=== PATIENT | female | born 1975 | race Caucasian/White ===

== ENCOUNTER 2016-11-06 16:40 | Emergency (ER) | payer MEDICAID ==
[2016-11-06] MEDS ORDERED: METHYLPREDNISOLONE SOD SUCC/PF 40 MG/ML VIAL IV ONE (17:07)
[2016-11-06] MEDS ORDERED: NORMAL SALINE 1,000 ML in NORMAL SALINE 1,000 ML IV ONE (17:07)
[2016-11-06] MEDS ORDERED: ALBUTEROL SULFATE/IPRATROPIUM 3 ML NEBU IH ONE ×2 (17:08→17:22)
[2016-11-06] MEDS ORDERED: METHYLPREDNISOLONE SOD SUCC/PF 40 MG/ML VIAL ONE (17:22)
--- OUTSIDE RECORDS SUMMARY | 2016-11-06 17:22 | XMS REPORT | Continuity of Care Document ---
:1975 Author Organization [facility] ([facility]) Address [address] [place] [address] Phone [phone] Care Team Providers Name Role Phone Unavailable Primary Care Provider Unavailable Source Comments This disclosure is being made pursuant to the Care Everywhere program, applicable federal and state laws, and may not contain all informaitonavailable regarding this patient.[facility] ([facility]) Active Allergies and Adverse Reactions Not on File Current Medications Not on file Active Problems Not on file Social History Tobacco Use Types Packs/Day Years Used Date Never Assessed Plan of Care Health Maintenance Due Date Last Done Comments Hepatitis B Vaccine (1 of 3 - Primary Series) 1975 Tdap Vaccine 01/06/1988 Lipid Disorder Screening 1995 MMR Vaccine 1995 Td Vaccine 1995 Cervical Cancer Screening 2007 Influenza Vaccine: Seasonal (#1) 04/12/2016 Results from Last 3 Months Not on file
--- NOTE | 2016-11-06 17:25 | ERNOTE ---
Medical Problem HPI - Narrative Date of Service: 11/06/16 - General Chief Complaint: General Assessment Time Seen by Provider: 11/06/16 16:55 Source: patient - Immun/Allergies/Home Medications Allergies/Adverse Reactions: Allergies cefuroxime axetil [From Ceftin] Allergy (Verified 11/06/16 16:49) Penicillins Allergy (Verified 11/06/16 16:49) Sulfa (Sulfonamide Antibiotics) [Sulfa(Sulfonamide Antibiotics)] Allergy ( Verified 11/06/16 16:49) Home Medications: HOME MEDICATIONS FLUoxetine HCL [Prozac] 60 mg PO DAILY 04/07/13 [Last Taken 05/15/14] Etonogestrel [Nexplanon] 06/03/13 [Last Taken Unknown] Clomipramine HCl [Anafranil] 50 mg PO HS 05/15/14 [Last Taken 05/15/14] LORazepam [Ativan] 0.5 mg PO HS PRN 05/15/14 [Last Taken 05/15/14] Doxycycline Monohydrate 100 mg PO BID #20 tablet 11/06/16 [Last Taken Unknown] Prednisone [Deltasone] 20 mg PO BID #10 tablet 11/06/16 [Last Taken Unknown] - History of Present History Narrative: Pt has had a cough and feels dehydrated for the past few days. Timing: constant Severity: moderate Review of Systems - Review of Systems Constitutional: Present: See HPI EYE: Present: no symptoms reported ENT: Present: no symptoms reported Respiratory: Present: cough Cardiology: Present: no symptoms reported Gastrointestinal/Abdominal: Present: no symptoms reported Genitourinary: Present: no symptoms reported Musculoskeletal: Present: no symptoms reported Skin: Present: no symptoms reported Neurological: Present: no symptoms reported Endocrine: Present: no symptoms reported Hematologic/Lymphatic: Present: no symptoms reported Psych: Present: no symptoms reported - Patient's Past Medical History Patient History - Medical: Anxiety, Depression Patient History - Cardiac/Respiratory: No pertinent hx Patient History - Cancer: No Hx of Cancer Patient History - Surgical Procedures: No surgical history - Social History Smoking Status: Current every day smoker Have you smoked in the past 12 months: Yes Physical Exam - Physical Exam General Appearance: Present: wd/wn, alert, mild distress Eye Exam: Normal inspection: bilateral, PERRL: bilateral Ears, Nose, Throat: Present: hearing grossly normal, normal pharynx, dry mucous membranes - mild Neck: Present: normal inspection, nontender Respiratory: Present: no respiratory distress, normal breath sounds, no accessory muscle use, chest nontender, lungs clear Cardiovascular/Chest: Present: no murmur, normal peripheral pulses, tachycardia - slight Gastrointestinal/Abdominal: Present: normal bowel sounds, nontender, nondistended, soft, no organomegaly Rectal Exam: Present: deferred Back Exam: Present: normal inspection, normal range of motion Extremity Exam: Present: normal inspection, non-tender, no edema, normal range of motion Neurological Exam: Present: alert, oriented, normal mood/affect Skin Exam: Present: warm/dry, other - maculo-papular rash where the pants rub against the pendulous abdomen Lymphatic Exam: Present: no adenopathy ED Progress - Results and Orders Patient's Lab Results:: I have reviewed the patient's lab results. - Vital Signs Patient's Vital Signs:: I have reviewed the patient's vital signs. Vital Signs: Vital Signs 11/06/16 16:44 Temperature 36.1 C L Pulse Rate 101 H Respiratory 14 Rate Blood Pressure 146/62 O2 Sat by Pulse 100 Oximetry - X-Ray X-Ray #1 X-Ray: chest Interpretation: Reviewed by me - Progress/Reassessment Chief Complaint: General Assessment Progress:: Improved - Transfer of Care Expected Disposition: Discharge Departure - Departure Clinical Impression: Bronchitis Contact dermatitis Qualifiers: Contact dermatitis type: irritant Contact dermatitis trigger: detergents Qualified Code(s): L24.0 - Irritant contact dermatitis due to detergents Disposition: Home self-care Condition: Good Instructions: Acute Bronchitis, [id number], Contact Dermatitis, [id number] Prescriptions: Doxycycline Monohydrate 100 mg PO BID #20 tablet Prednisone [Deltasone] 20 mg PO BID #10 tablet
[2016-11-06 17:29] LABS: Hematocrit 39.5 % (37.0-47.0); Hemoglobin 13.8 gm/dL (12.5-16.0); Mean Cell Volume 82.3 fl (78-100); Mean Corpuscular Hemoglobin 28.8 pg (27-31); Mean Corpuscular Hgb Conc 34.9 g/dl (32-36); Mean Platelet Volume 9.7 fl (6.0-9.5); Neutrophil # 10.7 K/mm3 (1.3-6.0); Neutrophil % 68.5 % (42-75.0); Platelet Count 395 K/mm3 (150-450); Red Cell Distribution Width 13.2 % (11.5-14.0); White Blood Count 15.6 K/mm3 (4.0-10.5)
[2016-11-06 17:42] LABS: BUN/Creatinine Ratio 17.1 (9.0-21.6)
[2016-11-06 17:43] LABS: Albumin * 3.9 gm/dl (3.4-5.0); Anion Gap 18.1 mmol/L (6.8-13.8); Bilirubin, Total 0.5 mg/dL (0.0-1.1); Ca. Corrected For Albumin 8.8 mg/dL (8.4-10.2); Carbon Dioxide 21.6 mmol/L (24-32.6); Magnesium 1.9 mg/dL (1.2-2.8); Potassium 4.7 mmol/L (3.4-4.6)
[2016-11-06 19:08] VITALS: BP 125/74
[2016-11-06] MEDS ORDERED: DOXYCYCLINE HYCLATE 100 MG TABLET PO ONE (19:24)
[2016-11-06] MEDS ORDERED: DOXYCYCLINE HYCLATE 100 MG TABLET ONE (19:25)
== END 2016-11-06 19:31 | disposition home or self-care (01) ==
LOC: ER 16:40
DX: J20.8 Acute bronchitis due to other specified organisms (principal); Z72.0 Tobacco use; L24.0 Irritant contact dermatitis due to detergents; F41.8 Other specified anxiety disorders

== ENCOUNTER 2016-11-07 16:10 | Emergency (ER) | payer MEDICAID ==
[2016-11-07 16:17] VITALS: BP 153/93
--- OUTSIDE RECORDS SUMMARY | 2016-11-07 16:29 | XMS REPORT | Continuity of Care Document ---
:1975 Author Organization [facility] ([facility]) Address [address] [place] [address] Phone [phone] Care Team Providers Name Role Phone Unavailable Primary Care Provider Unavailable Source Comments This disclosure is being made pursuant to the Care Everywhere program, applicable federal and state laws, and may not contain all informaitonavailable regarding this patient.[facility] ([facility]) Active Allergies and Adverse Reactions Not on [...]
[2016-11-07] MEDS ORDERED: LIDOCAINE HCL 20 ML VIAL ONE (16:37)
--- NOTE | 2016-11-07 16:53 | ERNOTE ---
Medical Problem HPI - Narrative Date of Service: 11/07/16 - General Chief Complaint: Laceration Time Seen by Provider: 11/07/16 16:19 Source: patient, RN notes reviewed Exam Limitations: no limitations - Immun/Allergies/Home Medications Allergies/Adverse Reactions: Allergies cefuroxime axetil [From Ceftin] Allergy (Verified 11/07/16 16:17) Penicillins Allergy (Verified 11/07/16 16:17) Sulfa (Sulfonamide Antibiotics) [Sulfa(Sulfonamide Antibiotics)] Allergy ( Verified 11/07/16 16:17) Home Medications: HOME MEDICATIONS FLUoxetine HCL [Prozac] 60 mg PO DAILY 04/07/13 [Last Taken 05/15/14] Etonogestrel [Nexplanon] 06/03/13 [Last Taken Unknown] Clomipramine HCl [Anafranil] 50 mg PO HS 05/15/14 [Last Taken 05/15/14] LORazepam [Ativan] 0.5 mg PO HS PRN 05/15/14 [Last Taken 05/15/14] Doxycycline Monohydrate 100 mg PO BID #20 tablet 11/06/16 [Last Taken Unknown] predniSONE [Deltasone] 20 mg PO BID #10 tablet 11/06/16 [Last Taken Unknown] - History of Present History Narrative: 41 y/o female ambulatory to the ED for a laceration to her right middle finger. She cut her self while washing dishes at home just [employer]. She reports having difficulty getting the wound to stop bleeding. Review of Systems - Review of Systems Constitutional: Present: no symptoms reported EYE: Present: no symptoms reported ENT: Present: no symptoms reported Respiratory: Present: no symptoms reported Cardiology: Present: no symptoms reported Gastrointestinal/Abdominal: Present: no symptoms reported Genitourinary: Present: no symptoms reported Musculoskeletal: Absent: joint pain, joint swelling Skin: Absent: lesions, lumps, change in color Neurological: Absent: weakness, numbness, tingling Endocrine: Present: no symptoms reported Hematologic/Lymphatic: Absent: easy bruising, easy bleeding Psych: Present: no symptoms reported - Patient's Past Medical History Patient History - Medical: Anxiety, Depression Patient History - Cardiac/Respiratory: No pertinent hx Patient History - Cancer: No Hx of Cancer Patient History - Surgical Procedures: No surgical history - Social History Living Situations: home Smoking Status: Current every day smoker - Immunizations Immunizations Up to Date: Yes Physical Exam - Physical Exam General Appearance: Present: wd/wn, alert, no apparent distress Respiratory: Present: no respiratory distress, no accessory muscle use Cardiovascular/Chest: Present: normal peripheral pulses Extremity Exam: Present: normal except - - Rt 3rd finger laceration Neurological Exam: Present: alert, oriented, normal mood/affect, no motor/ sensory deficits Skin Exam: Present: normal color, warm/dry ED Progress - Vital Signs Patient's Vital Signs:: I have reviewed the patient's vital signs. Vital Signs: Vital Signs 11/07/16 16:14 Temperature 35.8 C L Pulse Rate 117 H Respiratory 16 Rate Blood Pressure 153/93 O2 Sat by Pulse 99 Oximetry - Progress/Reassessment Chief Complaint: Laceration Progress:: Improved Procedures Right Volar Finger 3rd Digit Anesthesia: 1% Lidocaine Length of Repair/Wound (cm): 1.5 Wound's Depth/Shape: into subcutaneous Wound Explored: clean, to base, in bloodless field, no foreign body Wound Intervention: irrigated w/saline Distal NVT: neuro/vasc intact, no tendon injury Wound Repaired With: sutures Suture Size/Type: 5-0, nylon Number of Sutures: 4 Layer Closure: Simple Wound Dressing: sterile dressing applied Complications: Pt filippo procedure well Departure - Departure Clinical Impression: Finger laceration Qualifiers: Encounter type: initial encounter Qualified Code(s): S61.219A - Laceration without foreign body of unspecified finger without damage to nail, initial encounter Disposition: Home Follow Up Needed Condition: Good Instructions: Sutured Wound Care, [id number] Additional Instructions: Keep dressing dry and in place for 48 hours OK to then wash wound gently with soap and water but do not soak Apply antibiotic ointment and bandage as needed Have sutures removed in 7 days
== END 2016-11-07 16:55 | disposition home or self-care (01) ==
LOC: ER 16:10
PROC: 0JQJ0ZZ Repair Right Hand Subcutaneous Tissue and Fascia, Open Approach (ICD-10-PCS; principal; 2016-11-07)
DX: S61.212A Laceration without foreign body of right middle finger without damage to nail, initial encounter (principal); F17.210 Nicotine dependence, cigarettes, uncomplicated; Y93.G1 Activity, food preparation and clean up; Y92.009 Unspecified place in unspecified non-institutional (private) residence as the place of occurrence of the external cause

== ENCOUNTER 2017-01-01 13:06 | Emergency (ER) | payer MEDICAID ==
--- OUTSIDE RECORDS SUMMARY | 2017-01-01 13:22 | XMS REPORT | Continuity of Care Document ---
:1975 Author Organization [facility] ([facility]) Address [address] [place] [address] Phone [phone] Care Team Providers Name Role Phone Unavailable Primary Care Provider Unavailable Source Comments This disclosure is being made pursuant to the Care Everywhere program, applicable federal and state laws, and may not contain all informaitonavailable regarding this patient.[facility] ([facility]) Active Allergies and Adverse Reactions Not [...]
--- NOTE | 2017-01-01 13:53 | ERNOTE ---
Date of Service: 01/01/17 Time Seen by Provider: 01/01/17 13:15 Stated Complaint: SINUS INFECTIONS Presenting Symptoms:: other - frontal head pain, sinus congestion Exam Limitations: no limitations Immunizations: IMMUNIZATION HX Immunizations Up to Date Yes Allergies/Adverse Reactions: Allergies cefuroxime axetil [From Ceftin] Allergy (Verified 01/01/17 13:14) Penicillins Allergy (Verified 01/01/17 13:14) Sulfa (Sulfonamide Antibiotics) [Sulfa(Sulfonamide Antibiotics)] Allergy ( Verified 01/01/17 13:14) Home Medications: HOME MEDICATIONS FLUoxetine HCL [Prozac] 60 mg PO DAILY 04/07/13 [Last Taken 05/15/14] Etonogestrel [Nexplanon] 06/03/13 [Last Taken Unknown] Clomipramine HCl [Anafranil] 50 mg PO HS 05/15/14 [Last Taken 05/15/14] LORazepam [Ativan] 0.5 mg PO HS PRN 05/15/14 [Last Taken 05/15/14] Levofloxacin [Levaquin] 750 mg PO DAILY #7 tablet 01/01/17 [Last Taken Unknown] Magnesium Citrate [Citrate of Magnesia] 296 ml PO NOW #1 btl 01/01/17 [Last Taken Unknown] - Pain Score Pain Score #1 Pain Score: 4 - History of Present Ilness Narrative: Patient is a 41 year old female who presents to the ED with complaints of sinus pressure x 2 days, frontal headache, fluid in bilateral ears, sinus congestion and productive cough. Patient states she has had chronic sinus infections and "this is how they feel". Patient also states she has been feeling fatigued and tired, progressively worse x 1 week. States that she has been diagnosed in the past with anemia and had been previously taking vitamins which seemed to help. States she had felt better and stop the vitamins. Patient admits to poor diet, very little fruits and vegetables, a lot of tea and little water. Admits to smoking. 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 Denies dark tarry/black or bloody stools, chest pain or SOB. Date (Duration): 01/01/17 Timing: getting worse Severity: mild Frequency/Possible Cause: Reports: chronic episodes, smoke exposure, other - sick contacts Modifying Factors - Improves: Reports: antibiotics - has been on Zithromax before for sinus infections Modifying Factors - Worsens: Reports: coughing Associated Symptoms: Reports: cough, facial pain, nasal congestion, earache, headache. Denies: shortness of breath, wheezing, dizziness, lightheadedness, sore throat, muscle aches, fever/chills Review of Systems - Review of Systems Constitutional: Present: fatigue. Absent: recent illness, fever, chills, diaphoresis, weakness, weight loss EYE: Absent: eye pain, eye discharge, blurred vision ENT: Present: ear pain, nose congestion. Absent: ear discharge, sore throat, throat swelling Respiratory: Present: cough. Absent: shortness of breath, orthopnea, wheezing, stridor Cardiology: Absent: chest pain, palpitations, syncope, edema, claudication Gastrointestinal/Abdominal: Present: constipation - chronic. Absent: nausea, vomiting, diarrhea, abdominal pain Genitourinary: Present: no symptoms reported. Absent: frequency, pain, dysuria Musculoskeletal: Present: no symptoms reported Skin: Absent: rash, dryness Neurological: Present: no symptoms reported Endocrine: Present: no symptoms reported Hematologic/Lymphatic: Absent: no symptoms reported Psych: Absent: no symptoms reported - Patient's Past Medical History Patient History - Medical: Anxiety, Depression Patient History - Cardiac/Respiratory: No pertinent hx Patient History - Cancer: No Hx of Cancer Patient History - Surgical Procedures: No surgical history Patient History - Other: None LMP (females 10-50): last week - Social History Living Situations: home Smoking Status: Current every day smoker - Immunizations Immunizations Up to Date: Yes Physical Exam - Physical Exam General Appearance: Present: wd/wn, alert, no apparent distress Eye Exam: Normal inspection: bilateral, PERRL: bilateral Ears, Nose, Throat: Present: normal except - - effusion right ear, abnormal TM ( R), nasal congestion, sinus pain/drainage, pharyngeal erythema. Absent: hearing decreased, abnormal TM (L), cerumen impaction, pharyngeal swelling, tonsillar exudate, tonsillar swelling, dry mucous membranes Neck: Present: normal inspection, nontender, full range of motion. Absent: lymphadenopathy (R), lymphadenopathy (L) Respiratory: Present: no respiratory distress, normal breath sounds, no accessory muscle use, chest nontender, lungs clear Cardiovascular/Chest: Present: regular rate, rhythm, no murmur, normal peripheral pulses Peripheral Pulses: N=norm/S=strong/W=weak/B=bound/A=absent: Radial (R): Normal, Radial (L): Normal Gastrointestinal/Abdominal: Present: normal bowel sounds, nontender, nondistended, soft, no organomegaly Rectal Exam: Present: deferred Back Exam: Present: normal inspection, normal range of motion, no CVA tenderness , no vertebral tenderness Extremity Exam: Present: normal inspection, non-tender, normal range of motion, no edema Neurological Exam: Present: alert, oriented, normal mood/affect, no motor/ sensory deficits Skin Exam: Present: normal color, warm/dry Lymphatic Exam: Present: no adenopathy ED Progress - Vital Signs Patient's Vital Signs:: I have reviewed the patient's vital signs. Vital Signs: Vital Signs 01/01/17 01/01/17 13:10 13:38 Temperature 36.9 C Pulse Rate 96 96 Respiratory 16 Rate Blood Pressure 145/87 O2 Sat by Pulse 100 Oximetry - Progress/Reassessment Chief Complaint: Upper Respiratory Symptoms Departure - Departure Clinical Impression: Constipation, chronic Sinusitis Qualifiers: Sinusitis location: maxillary Chronicity: acute Recurrence: recurrent Qualified Code(s): J01.01 - Acute recurrent maxillary sinusitis Anemia Qualifiers: Anemia type: unspecified type Qualified Code(s): D64.9 - Anemia, unspecified Disposition: Home Follow Up Needed Condition: Good Instructions: Anemia, Nonspecific, Sinusitis, Adult, [id number] Additional Instructions: Please take antibiotics as prescribed and until completed. Over the counter [place] pot rinses to both nostrils three times a day. Take half bottle Magnesium Citrate, if no results in one hour finish bottle. Increase vegetables and fiber in diet to help with constipation. Increase water intake. Please make appointment with MOHINDER Dove to discuss previous vitamin regimen. Referrals: Petty Cisneros APN [Primary Care Provider] - Prescriptions: Levofloxacin [Levaquin] 750 mg PO DAILY #7 tablet Magnesium Citrate [Citrate of Magnesia] 296 ml PO NOW #1 btl
[2017-01-01 14:03] VITALS: BP 130/87
== END 2017-01-01 13:53 | disposition home or self-care (01) ==
LOC: ER 13:06
DX: J01.01 Acute recurrent maxillary sinusitis (principal); K59.09 Other constipation; D64.9 Anemia, unspecified; F17.210 Nicotine dependence, cigarettes, uncomplicated; F41.9 Anxiety disorder, unspecified; F32.9 Major depressive disorder, single episode, unspecified

== ENCOUNTER 2017-08-14 22:18 | Emergency (ER) | payer MEDICAID ==
[2017-08-14] MEDS ORDERED: KETOROLAC TROMETHAMINE 60 MG/2 ML VIAL IM ONE ×2 (22:35→22:36)
--- NOTE | 2017-08-14 22:35 | ERNOTE ---
ENT HPI Date of Service: 08/14/17 Time Seen by Provider: 08/14/17 22:31 Source: patient Exam Limitations: no limitations - Immun/Allergies/Home Medications Immunizations: IMMUNIZATION HX Immunizations Up to Date Yes History of Influenza Vaccine Yes Hx Pneumococcal Vaccination No Allergies/Adverse Reactions: Allergies Allergy/AdvReac Type Severity Reaction Status Date / Time cefuroxime axetil Allergy Verified 01/01/17 13:14 [From Ceftin] Penicillins Allergy Verified 01/01/17 13:14 Sulfa (Sulfonamide Allergy Verified 01/01/17 13:14 Antibiotics) [Sulfa(Sulfonamide Antibiotics)] Home Medications: HOME MEDICATIONS FLUoxetine HCL [Prozac] 60 mg PO DAILY 04/07/13 [Last Taken 05/15/14] Etonogestrel [Nexplanon] 06/03/13 [Last Taken Unknown] Clomipramine HCl [Anafranil] 50 mg PO HS 05/15/14 [Last Taken 05/15/14] LORazepam [Ativan] 0.5 mg PO HS PRN 05/15/14 [Last Taken 05/15/14] Azithromycin [Zithromax] 250 mg PO 08/14/17 [Last Taken Unknown] Doxycycline Hyclate [Morgidox] 100 mg PO BID #20 capsule 08/14/17 [Last Taken Unknown] HYDROcodone/ACETAMINOPHEN [[place] 5-325] 1 tab PO Q4H PRN #12 tab 08/14/17 [Last Taken Unknown] - History of Present Illness Narrative: c/o right ear pain , currently on zithromax for sinusits Severity: Present: moderate ENT Location: Present: ear (R) Prearrival Treatment: Present: prescription meds Modifying Factors - Improves: Reports: lying down Modifying Factors - Worsens: Reports: activity Associated Symptoms - ENT: Reports: fever, nasal congestion/drainage Prior Treament: Reports: recently seen, treated by physician, currently on antibiotics Review of Systems - Narrative Narrative: patient c/o of right ear pain started over last two days - Review of Systems Constitutional: Present: See HPI, malaise EYE: Present: no symptoms reported ENT: Present: See HPI, ear pain, nose congestion Respiratory: Present: cough Cardiology: Present: no symptoms reported Gastrointestinal/Abdominal: Present: no symptoms reported Genitourinary: Present: no symptoms reported Musculoskeletal: Present: no symptoms reported Skin: Present: no symptoms reported Neurological: Present: no symptoms reported Endocrine: Present: no symptoms reported Hematologic/Lymphatic: Present: no symptoms reported Psych: Present: no symptoms reported All Other Systems: All systems neg except as marked - Narrative Narrative: unremarkable - Patient's Past Medical History Patient History - Medical: Anxiety, Depression Patient History - Cardiac/Respiratory: No pertinent hx Patient History - Cancer: No Hx of Cancer Patient History - Surgical Procedures: Orthopedic Patient History - Other: None LMP (females 10-50): this week - Family History Family History:: no untoward family reactions to anesthesia, no familial bleeding tendencies, no family history of clotting disorders, no family history of premature - Social History Living Situations: significant other Psych History: Hx of Anxiety, Hx of Depression Smoking Status: Current every day smoker Have you smoked in the past 12 months: Yes Do you dip or chew tobacco: No Patient requests Smoking Cessation Consult: No Initiate information on Smoking Cessation: No Alcohol Use: none Drug Use: none - Immunizations Immunizations Up to Date: Yes Hx Pneumococcal Vaccination: No History of Influenza Vaccine: Yes Physical Exam - Physical Exam Narrative: patient appears in moderate distress General Appearance: Present: moderate distress Head Exam: Present: normal inspection, no evidence of injury Eye Exam: Normal inspection: bilateral, PERRL: bilateral, EOMI: bilateral Ears, Nose, Throat: Present: abnormal TM (R), normal pharynx Neck: Present: normal inspection, nontender Respiratory: Present: no respiratory distress, normal breath sounds, no accessory muscle use, chest nontender, lungs clear Cardiovascular/Chest: Present: regular rate, rhythm, no murmur, normal peripheral pulses Peripheral Pulses: N=norm/S=strong/W=weak/B=bound/A=absent: Carotid (R): Normal , Carotid (L): Normal, Radial (R): Normal, Radial (L): Normal, Femoral (R): Normal, Femoral (L): Normal, Dorsalis-pedis (R): Normal, Dorsalis-pedis (L): Normal Gastrointestinal/Abdominal: Present: normal bowel sounds, nontender, nondistended, soft, no organomegaly Back Exam: Present: normal inspection, normal range of motion, no CVA tenderness , no vertebral tenderness Extremity Exam: Present: normal inspection, non-tender, normal range of motion, no edema Neurological Exam: Present: alert, oriented, normal mood/affect, no motor/ sensory deficits DTR: N=norm/NB=norm/brisk/A=abs/DD=dull/dimin/HC=hyperactive: Bicep (R): Normal , Bicep (L): Normal, Tricep (R): Normal, Tricep (L): Normal, Knee (R): Normal, Knee (L): Normal, Ankle (R): Normal, Ankle (L): Normal Skin Exam: Present: normal color, warm/dry Lymphatic Exam: Present: no adenopathy ED Progress - Date and Time Seen: Date and Time: 08/14/17 22:40 patient condition unchanged - Vital Signs Patient's Vital Signs:: I have reviewed the patient's vital signs. Vital Signs: Vital Signs 08/14/17 22:22 Temperature 36.8 C Pulse Rate 102 H Respiratory 18 Rate Blood Pressure 157/93 O2 Sat by Pulse 98 Oximetry - Progress/Reassessment Chief Complaint: Earache Progress:: Unchanged - Transfer of Care Expected Disposition: Discharge Departure Clinical Impression: Otitis media - Departure Disposition: Home self-care Condition: Fair Instructions: Otitis Media, Adult, [id number] Referrals: Petty Cisneros APN [Primary Care Provider] - Prescriptions: Doxycycline Hyclate [Morgidox] 100 mg PO BID #20 capsule HYDROcodone/ACETAMINOPHEN [[place] 5-325] 1 tab PO Q4H PRN #12 tab PRN Reason: Pain
[2017-08-14] MEDS ORDERED: HYDROcodone/ACETAMINOPHEN 1 EACH TABLET PO ONE (22:43)
[2017-08-14] MEDS ORDERED: DOXYCYCLINE HYCLATE 100 MG TABLET PO ONE (22:44)
[2017-08-14 22:56] VITALS: BP 144/88
== END 2017-08-14 22:43 | disposition home or self-care (01) ==
LOC: ER 22:18
DX: H66.91 Otitis media, unspecified, right ear (principal); F17.200 Nicotine dependence, unspecified, uncomplicated

== ENCOUNTER 2017-10-24 17:49 | Emergency (ER) | payer MEDICAID ==
--- NOTE | 2017-10-24 18:24 | ERNOTE ---
ENT HPI Date of Service: 10/24/17 Presenting Symptoms: other - sore throat Time Seen by Provider: 10/24/17 18:12 Source: patient Exam Limitations: no limitations - Immun/Allergies/Home Medications Immunizations: IMMUNIZATION HX Immunizations Up to Date Yes History of Influenza Vaccine Yes Hx Pneumococcal Vaccination No Allergies/Adverse Reactions: Allergies Allergy/AdvReac Type Severity Reaction Status Date / Time cefuroxime axetil Allergy Verified 10/24/17 18:04 [From Ceftin] Penicillins Allergy Verified 10/24/17 18:04 Sulfa (Sulfonamide Allergy Verified 10/24/17 18:04 Antibiotics) [Sulfa(Sulfonamide Antibiotics)] Home Medications: HOME MEDICATIONS FLUoxetine HCL [Prozac] 60 mg PO DAILY 04/07/13 [Last Taken 05/15/14] Etonogestrel [Nexplanon] 1 bar IU NOW 06/03/13 [Last Taken Unknown] Clomipramine HCl [Anafranil] 50 mg PO HS 05/15/14 [Last Taken 05/15/14] LORazepam [Ativan] 0.5 mg PO HS PRN 05/15/14 [Last Taken 05/15/14] Doxycycline Hyclate [Vibratab] 100 mg PO BID #20 tab 10/24/17 [Last Taken Unknown] - History of Present Illness Narrative: Pt. comes in with c/o cough, chest congestion, sore throat, fatigue and weakness for 2 weeks. Pt. states that she was diagnosed with Strep 2 weeks ago and took one days worth of abx then lost the script and did not finish them but the symptoms (except for the cough) resolved and returned 2 days ago. Pt. denies any fever, chills, SOB, CP, NVD, but sates taht she has had some sweating and hot flashes that are abnormal for her. Severity: Present: mild ENT Location: Present: nose, throat Prearrival Treatment: Present: no prearrival treatment, prescription meds Modifying Factors - Improves: Reports: antibiotics Modifying Factors - Worsens: Reports: activity, lying down Associated Symptoms - ENT: Reports: cough, sore throat, nasal congestion/ drainage. Denies: facial pain/swelling, tooth pain, change in hearing, headache , foreign body Prior Treament: Reports: recently seen, treated by physician, similar symptoms before. Denies: recently hospitalized, currently on antibiotics Review of Systems - Review of Systems Constitutional: Present: no symptoms reported. Absent: fever, chills, weakness , fatigue, malaise EYE: Present: no symptoms reported. Absent: eye pain, double vision ENT: Present: nose congestion, sore throat Respiratory: Present: no symptoms reported. Absent: shortness of breath, cough , wheezing Cardiology: Present: no symptoms reported. Absent: chest pain, palpitations, edema Gastrointestinal/Abdominal: Present: no symptoms reported. Absent: nausea, vomiting, diarrhea Genitourinary: Present: no symptoms reported. Absent: frequency, decreased urinary output Musculoskeletal: Present: no symptoms reported. Absent: back pain, neck pain, joint pain Skin: Present: no symptoms reported. Absent: rash, change in hair/nails Neurological: Present: no symptoms reported. Absent: headache, dizziness/light- headedness, numbness, tingling All Other Systems: All systems neg except as marked - Patient's Past Medical History Patient History - Medical: Anxiety, Depression Patient History - Cardiac/Respiratory: No pertinent hx Patient History - Cancer: No Hx of Cancer Patient History - Surgical Procedures: Orthopedic Patient History - Other: None LMP (females 10-50): nexplanon - Social History Living Situations: home Psych History: Hx of Anxiety, Hx of Depression Smoking Status: Never smoker Alcohol Use: none Drug Use: none - Immunizations Immunizations Up to Date: Yes Hx Pneumococcal Vaccination: No History of Influenza Vaccine: Yes Physical Exam - Physical Exam General Appearance: Present: wd/wn, alert, no apparent distress Head Exam: Present: normal inspection, no evidence of injury, no tenderness w palpation Eye Exam: Normal inspection: bilateral, PERRL: bilateral, EOMI: bilateral Ears, Nose, Throat: Present: nasal congestion, pharyngeal erythema. Absent: abnormal TM (R), abnormal TM (L), normal pharynx, pharyngeal swelling, tonsillar exudate, tonsillar swelling, dry mucous membranes Neck: Present: normal inspection, nontender, supple, full range of motion. Absent: lymphadenopathy (R), lymphadenopathy (L) Respiratory: Present: no respiratory distress, normal breath sounds, no accessory muscle use, chest nontender, lungs clear. Absent: rales, rhonchi, wheezing Cardiovascular/Chest: Present: regular rate, rhythm, no murmur, normal peripheral pulses Gastrointestinal/Abdominal: Present: normal bowel sounds, nontender, nondistended, soft, no organomegaly Back Exam: Present: normal inspection, normal range of motion, no CVA tenderness , no vertebral tenderness Extremity Exam: Present: normal inspection, non-tender, normal range of motion, no edema Neurological Exam: Present: alert, oriented, normal mood/affect, no motor/ sensory deficits Skin Exam: Present: normal color, warm/dry. Absent: pallor, skin rash ED Progress - Date and Time Seen: Date and Time: 10/24/17 18:23 Pt. is a smoker with long standing cough and not finishing previous abx if flu and strep negative still feel that pt. needs abx treatment - Results and Orders Patient's Lab Results:: I have reviewed the patient's lab results. - Vital Signs Patient's Vital Signs:: I have reviewed the patient's vital signs. Vital Signs: Vital Signs 10/24/17 17:56 Temperature 36.9 C Pulse Rate 113 H Respiratory 16 Rate Blood Pressure 144/86 O2 Sat by Pulse 100 Oximetry - Progress/Reassessment Chief Complaint: Sore Throat Progress:: Unchanged Departure Clinical Impression: Bronchitis Upper respiratory infection Qualifiers: URI type: unspecified URI Qualified Code(s): J06.9 - Acute upper respiratory infection, unspecified Sinusitis Qualifiers: Sinusitis location: maxillary Chronicity: acute Recurrence: non-recurrent Qualified Code(s): J01.00 - Acute maxillary sinusitis, unspecified - Departure Disposition: Home self-care Condition: Poor Instructions: Upper Respiratory Infection, Adult, [id number] Additional Instructions: Please follow up with primary provider in 2-3 days. Referrals: Petty Cisneros APN [Primary Care Provider] - Prescriptions: Doxycycline Hyclate [Vibratab] 100 mg PO BID #20 tab
[2017-10-24 19:15] VITALS: BP 138/78
== END 2017-10-24 19:10 | disposition home or self-care (01) ==
LOC: ER 17:49
DX: J40 Bronchitis, not specified as acute or chronic (principal); J06.9 Acute upper respiratory infection, unspecified; J01.00 Acute maxillary sinusitis, unspecified; F17.200 Nicotine dependence, unspecified, uncomplicated; F41.9 Anxiety disorder, unspecified; F32.9 Major depressive disorder, single episode, unspecified